=== PATIENT | male | born 1945 | race Caucasian/White ===

== ENCOUNTER → 2022-08-16 | Outpatient (CLI) | payer MEDICARE ==
--- NOTE | 2022-08-16 18:28 | Diagnostic Imaging Report ---
INDICATION: Right hip pain. COMPARISON: None available. TECHNIQUE: Two radiographs of the right hip dated 08/16/2022. FINDINGS: No acute fracture or dislocation. No destructive osseous process. Moderate joint space narrowing of the right hip is noted, particularly superiorly. This is associated with prominent osteophyte formation, particularly involving the acetabulum. The right femoral head maintains its normal shape and contour. However, the junction of the femoral head and neck demonstrates a convex margin. IMPRESSION: No acute fracture with [id number] degenerative changes of the right hip. Convex margin of the superolateral aspect of the right femoral head and neck, which can be seen with femoroacetabular impingement syndrome. Recommend clinical correlation. Dictated by: Dictated on workstation # [id number]
== END ==
LOC: ORTHO 13:32
PROVIDERS: ATTEND Orthopaedic Surgery
DX: M16.11 Unilateral primary osteoarthritis, right hip (principal)
CPT/HCPCS: 73502; G0463; 99213